=== PATIENT | male | born 1980 | race Caucasian/White ===

== ENCOUNTER → 2017-12-11 | Outpatient (CLI) | payer OTHER ==
--- NOTE | 2017-12-11 16:54 | US ---
EXAMINATION TYPE: US venous doppler duplex LE RT DATE OF EXAM: 12/11/2017 4:18 PM COMPARISON: NONE CLINICAL HISTORY: I80.9 PHLEBITIS AMD THROMBOPHLEBITIS. Leg injury 1 week ago, swelling and painful f oot, no h/o dvt SIDE PERFORMED: Right TECHNIQUE: The lower extremity deep venous system is examined utilizing real time linear array sonog malorie with graded compression, doppler sonography and color-flow sonography. VESSELS IMAGED: External Iliac Vein (EIV) Common Femoral Vein Deep Femoral Vein Greater Saphenous Vein * Femoral Vein Popliteal Vein Small Saphenous Vein * Proximal Calf Veins (* superficial vessels) Right Leg: Appears negative for DVT Spoke with office and relayed negative findings IMPRESSION: No evidence of deep venous thrombosis in the right leg.
== END ==
LOC: RADUSWWP 15:55
PROVIDERS: ATTEND Orthopaedic Surgery
DX: M79.671 Pain in right foot (principal); S92.401A Displaced unspecified fracture of right great toe, initial encounter for closed fracture; M79.661 Pain in right lower leg; R60.9 Edema, unspecified; I80.9 Phlebitis and thrombophlebitis of unspecified site

== ENCOUNTER 2019-01-29 04:54 | Emergency (ER) | payer OTHER ==
[2019-01-29] MEDS ORDERED: SODIUM CHLORIDE 0.9% 1,000 ML IV STA (05:01)
--- NOTE | 2019-01-29 05:01 | ED ---
Overdose HPI - General Source: patient, family, police, EMS, RN notes reviewed Mode of arrival: EMS Limitations: altered mental status <Jaclyn Witt - Last Filed: 01/29/19 06:13> <Carlos Hayes - Last Filed: 01/29/19 13:22> - General Stated Complaint: overdose Time Seen by Provider: 01/29/19 05:00 - History of Present Illness Initial Comments: Cornelio is a 88-year-old gentleman who is brought to the emergency department today by EMS and police. EMS was contacted for evaluation of possible overdose, upon their arrival patient was sitting in a chair, he would wake to painful stimuli but was altered had shallow respirations. Patient had mentioned injecting something in his arm but could not provide a clear history. Decision was made to give the patient intramuscular Narcan, after receiving the Narcan patient became acutely agitated and combative and began vomiting. At that time it took multiple EMS and law officers to restrain the patient, he is treated with intramuscular and then ketamine. Patient was appropriately sedated and transported to the hospital he was given supplemental oxygen as he has shallow respirations, coming from [facility] had a long transport time, patient's respirations begin to decrease in route to the hospital and he was given an additional 0.5 mg of IV Narcan with improvement in his respirations. Upon becoming more awake and alert the patient admits that he intentionally overdosed on heroin in a suicide attempt. (Jaclyn Witt) - Related Data Allergies Allergy/AdvReac Type Severity Reaction Status Date / Time Penicillins AdvReac Unknown Verified 01/29/19 05:49 Review of Systems ROS Other: All systems not noted in ROS Statement are negative. <Jaclyn Witt - Last Filed: 01/29/19 06:13> ROS Other: All systems not noted in ROS Statement are negative. <Carlos Hayes - Last Filed: 01/29/19 13:22> ROS Statement: Those systems with pertinent positive or pertinent negative responses have been documented in the HPI. General Exam <Jaclyn Witt - Last Filed: 01/29/19 06:13> - General Exam Comments Initial Comments: Physical Exam GENERAL: Patient is well-developed and well-nourished. HENT: Normocephalic, Atraumatic. EYES: PERRL, EOMI Pupils 2-3mm reactive PULMONARY: Unlabored respirations. No audible rales rhonchi or wheezing was noted. CARDIOVASCULAR: There is a regular rate and rhythm without any murmurs gallops or rubs. ABDOMEN: Soft and nontender with normal bowel sounds. SKIN: Skin is clear with no lesions or rashes and otherwise unremarkable. : Deferred NEUROLOGIC: Patient is alert and oriented to person, able to identify that he is in a hospital, able to describe events prior to transport Moving all extremities spontaneously MUSCULOSKELETAL: Normal extremities with adequate strength and full range of motion. No lower extremity swelling or edema. No calf tenderness. PSYCHIATRIC: Agitated, cooperative (Jaclyn Witt) Course Vital Signs 01/29/19 01/29/19 01/29/19 04:56 06:45 07:21 Temperature 98.3 F Pulse Rate 105 H 78 Respiratory 20 17 16 Rate Blood Pressure 115/76 O2 Sat by Pulse 95 93 L 96 Oximetry Medical Decision Making - Lab Data Result diagrams: 01/29/19 05:00 01/29/19 05:00 <Jaclyn Witt - Last Filed: 01/29/19 06:13> - Lab Data Result diagrams: 01/29/19 05:00 01/29/19 05:00 <Carlos Hayes - Last Filed: 01/29/19 13:22> - Medical Decision Making The patient was seen and evaluated immediately upon arrival the emergency department. EMS treated the patient for likely narcotic overdose and after treatment with Narcan the patient became acutely agitated and required sedation with Versed and ketamine. Upon arrival the patient is somewhat sedated but maintaining his airway Labs and imaging ordered EKG was ordered due to concern for ingestion, EKG obtained at 5:02 AM, rate is 17 rhythm is sinus tachycardia normal axis there are normal intervals, ME 162, QS 80, QTc is 43 there is no acute ST elevations or depressions or evidence of acute ischemia or infarction no QT prolongation. Labs are reviewed, patient's alcohol level significantly elevated at 208, patient will be sober and approximately 5-6 hours, patient will be held for psychiatric evaluation given that he had a suicide attempt by polysubstance overdose and was found unresponsive. Patient care was signed out to Dr. Hayes at shift change pending sobriety and psychiatric evaluation. (Jaclyn Witt) EPS evaluated the patient and determined that the patient could safely go home. (Carlos Hayes) - Lab Data Lab Results 01/29/19 01/29/19 01/29/19 Range/Units 05:00 05:00 06:00 WBC 7.6 (3.8-10.6) k/uL RBC 4.90 (4.30-5.90) m/uL Hgb 15.4 (13.0-17.5) gm/dL Hct 44.8 (39.0-53.0) % MCV 91.6 (80.0-100.0) fL MCH 31.4 (25.0-35.0) pg MCHC 34.3 (31.0-37.0) g/dL RDW 12.3 (11.5-15.5) % Plt Count 335 (150-450) k/uL Neutrophils % 75 % Lymphocytes % 17 % Monocytes % 4 % Eosinophils % 2 % Basophils % 1 % Neutrophils # 5.6 (1.3-7.7) k/uL Lymphocytes # 1.3 (1.0-4.8) k/uL Monocytes # 0.3 (0-1.0) k/uL Eosinophils # 0.1 (0-0.7) k/uL Basophils # 0.1 (0-0.2) k/uL Sodium 143 (137-145) mmol/L Potassium 4.8 (3.5-5.1) mmol/L Chloride 113 H (98-107) mmol/L Carbon Dioxide 16 L (22-30) mmol/L Anion Gap 14 mmol/L BUN 11 (9-20) mg/dL Creatinine 0.80 (0.66-1.25) mg/dL Est GFR (CKD-EPI)AfAm >90 (>60 ml/min/1.73 sqM) Est GFR (CKD-EPI)NonAf >90 (>60 ml/min/1.73 sqM) Glucose 109 H (74-99) mg/dL Calcium 9.0 (8.4-10.2) mg/dL Total Bilirubin 0.4 (0.2-1.3) mg/dL AST 38 (17-59) U/L ALT 35 (21-72) U/L Alkaline Phosphatase 61 (38-126) U/L Total Protein 7.4 (6.3-8.2) g/dL Albumin 4.3 (3.5-5.0) g/dL Salicylates <1.0 mg/dL Urine Opiates Screen Not Detected (NotDetected) Ur Oxycodone Screen Not Detected (NotDetected) Urine Methadone Screen Not Detected (NotDetected) Ur Propoxyphene Screen Not Detected (NotDetected) Acetaminophen <10.0 ug/mL Ur Barbiturates Screen Not Detected (NotDetected) U Tricyclic Antidepress Not Detected (NotDetected) Ur Phencyclidine Scrn Not Detected (NotDetected) Ur Amphetamines Screen Not Detected (NotDetected) U Methamphetamines Scrn Not Detected (NotDetected) U Benzodiazepines Scrn Not Detected (NotDetected) Urine Cocaine Screen Not Detected (NotDetected) U Marijuana (THC) Screen Not Detected (NotDetected) Serum Alcohol 208 H* mg/dL Disposition <Jaclyn Witt - Last Filed: 01/29/19 06:13> Is patient prescribed a controlled substance at d/c from ED?: No Time of Disposition: 13:22 <Carlos Hayes - Last Filed: 01/29/19 13:22> Clinical Impression: Alcohol intoxication Disposition: HOME SELF-CARE Condition: Good Instructions (If sedation given, give patient instructions): Alcohol Intoxication (ED) Referrals: None,Stated [REFERRING] - 1-2 days
[2019-01-29 05:20] LABS: Basophils # (A) 0.1 k/uL (0-0.2); Basophils % (A) 1 %; Eosinophils # (A) 0.1 k/uL (0-0.7); Eosinophils % (A) 2 %; HCT 44.8 % (39.0-53.0); HGB 15.4 gm/dL (13.0-17.5); Lymphocytes # (A) 1.3 k/uL (1.0-4.8); Lymphocytes % (A) 17 %; MCH 31.4 pg (25.0-35.0); MCHC 34.3 g/dL (31.0-37.0); MCV 91.6 fL (80.0-100.0); Mean Platelet Volume 6.7; Monocytes # (A) 0.3 k/uL (0-1.0); Monocytes % (A) 4 %; Neutrophils # (A) 5.6 k/uL (1.3-7.7); Neutrophils % (A) 75 %; Platelet Count 335 k/uL (150-450); RDW 12.3 % (11.5-15.5); WBC 7.6 k/uL (3.8-10.6)
[2019-01-29 05:33] LABS: ALT 35 U/L (21-72); AST 38 U/L (17-59); Acetaminophen <10.0 ug/mL; African American GFR (CKD) >90 (>60 ml/min/1.73 sqM); Albumin 4.3 g/dL (3.5-5.0); Alkaline Phosphatase 61 U/L (38-126); Anion Gap 14 mmol/L; Blood Urea Nitrogen 11 mg/dL (9-20); Carbon Dioxide 16 mmol/L (22-30); Chloride 113 mmol/L (98-107); Glucose 109 mg/dL (74-99); Potassium 4.8 mmol/L (3.5-5.1); Salicylate <1.0 mg/dL; Sodium 143 mmol/L (137-145); Total Bilirubin 0.4 mg/dL (0.2-1.3); Total Protein 7.4 g/dL (6.3-8.2)
--- NOTE | 2019-01-29 05:46 | XR ---
EXAM: XR Chest, 1 View CLINICAL HISTORY: ITS.REASON XR Reason: hypoxia after narcan TECHNIQUE: Frontal view of the chest. COMPARISON: No relevant prior studies available. FINDINGS: Lungs: No consolidation or mass. Pleural space: No acute findings Heart: No cardiomegaly. Bones/joints: No acute findings. IMPRESSION: No acute cardiopulmonary process.
[2019-01-29 05:48] LABS: Alcohol 208 mg/dL
[2019-01-29 06:26] LABS: Amphetamine Screen,Urine Not Detected (NotDetected); Barbiturate Screen,Urine Not Detected (NotDetected); Benzodiazepines Screen,Urine Not Detected (NotDetected); Cocaine Screen,Urine Not Detected (NotDetected); Methadone Screen, Urine Not Detected (NotDetected); Opiate Screen,Urine Not Detected (NotDetected); Oxycodone Screen, Urine Not Detected (NotDetected); Phencyclidine Screen,Urine Not Detected (NotDetected); Tricyclic Antidepressant,Urine Not Detected (NotDetected); Urn Cannabinoid Scrn Not Detected (NotDetected)
[2019-01-29 13:57] VITALS: BP 123/91; PULSE 89; RESP 18; TEMP 97.9
== END 2019-01-29 13:57 | disposition home or self-care (01) ==
LOC: EC 04:54
DX: F10.129 Alcohol abuse with intoxication, unspecified (principal); R00.0 Tachycardia, unspecified; R45.1 Restlessness and agitation; Z88.0 Allergy status to penicillin
CPT/HCPCS: 36415; 71045; 80053; 80306; 80320; 80329; 83520; 85025; 93005; 96360; 99285